=== PATIENT | male | born 1995 | race Two or more races ===

== ENCOUNTER 2021-01-04 19:37 | Emergency (ER) | payer OTHER ==
[~2021-01-04] VITALS: Ht 167.6 cm; Wt 72.6 kg
[2021-01-04 19:50] VITALS: BP 106/69
[2021-01-04] MEDS ORDERED: ALBUTEROL SULF 2.5 MG/0.5ML(0.5%) NEB SOLN NEB ONE (20:00)
[2021-01-04] MEDS ORDERED: IPRATROPIUM BROM 0.5 MG/2.5ML INH SOL NEB ONE (20:00)
[2021-01-04] MEDS ORDERED: DexAMETHasone SOD PHOS 10MG/1ML VIAL INJ IV ONE (21:00)
== END 2021-01-04 23:28 | disposition left against medical advice (07) ==
LOC: ER 19:44
DX: J02.9 Acute pharyngitis, unspecified (principal); R51.9 Headache, unspecified; Z53.21 Procedure and treatment not carried out due to patient leaving prior to being seen by health care provider
CPT/HCPCS: 94640; J7644

== ENCOUNTER 2021-07-18 17:43 | Emergency (ER) | payer OTHER ==
[~2021-07-18] VITALS: Ht 167.6 cm; Wt 81.6 kg
[2021-07-18 19:05] VITALS: BP 124/80
[2021-07-18] MEDS ORDERED: IBUP800T27 PO (19:53)
[2021-07-18] MEDS ORDERED: METH500T22 PO (19:53)
[2021-07-18] MEDS ORDERED: ALPRAZolam 0.25 MG TAB PO ONE (20:00)
[2021-07-18] MEDS ORDERED: METHOCARBAMOL 500 MG TAB PO ONE (20:00)
[2021-07-18] MEDS ORDERED: KETOROLAC TROMETH 30 MG/ML 1ML VIAL IM ONE (20:00)
== END 2021-07-18 20:30 | disposition home or self-care (01) ==
LOC: ER 17:43
DX: M54.16 Radiculopathy, lumbar region (principal); M79.18 Myalgia, other site; M54.31 Sciatica, right side
CPT/HCPCS: 96372; 99283; J1885

== ENCOUNTER 2024-06-13 06:17 | Emergency (ER) | payer BC, OTHER ==
[~2024-06-13] VITALS: Ht 167.6 cm; Wt 81.8 kg
[~2024-06-13 06:17] MED LIST: IBUP-1456 PO; METH-1181 PO
--- NOTE | 2024-06-13 09:28 | ED.PDOC ---
Musculoskeletal HPI Comments 28 year old male presents to the ED with chief complaint of ankle pain. Patient reports that he has been experiencing right ankle pain since rolling his ankle at an outing with his family a few days ago. Patient relays that he took some mild pain medication with some relief noted. Patient denies any fall, trauma, numbness, or weakness. Chief Complaint: Lower Extremity Time Seen by MD: 09:26 Primary Care Provider: UNKNOWN Reviewed Notes: Nurses Notes, Medications, Allergies Allergies: Coded Allergies: NO KNOWN ALLERGIES (Unverified , 01/04/21) Home Meds Active Scripts Methocarbamol (Methocarbamol) 500 Mg Tab, 500 MG PO QHSP PRN for 10 Days, #10 TAB 0 Refills Prov:PATRICE NOYOLA 07/18/21 Ibuprofen (Ibuprofen) 800 Mg Tab, 1 TAB PO TID, #30 TAB 0 Refills Prov:PATRICE NOYOLA 07/18/21 Information Source: Patient Mode of Arrival: Ambulatory Location: Right Extremity Location: Ankle Timing: Days Prehospital treatment: None Severity: Moderate Able to Move Extremity: Yes Bear Weight: Limited Pain: Moderate Mechanism: Twisting Circumstances: Unknown Onset of Symptoms: Spontaneous Symptoms: Pain DVT Risk Factors: NONE Last Tetanus: Unknown Past Medical History PAST MEDICAL HISTORY: Denies Surgical History (Other): Left knee surgery Family History Family History: Reviewed,noncontributory to illness, No family hx of Cancer, No family hx of DM, No family hx of Heart marlon, No family hx of HTN, No family hx ofKidney marlon, No family hx of Liver marlon, No family hx of Lung marlon, No family hx of Stroke Social History Smoker: Non-Smoker Alcohol: Denies ETOH Use Drugs: Denies Drug Use Lives In: Home Constitutional: denies: chills, diaphoresis, fatigue, fever, malaise, sweats, weakness, others EENTM: denies: blurred vision, double vision, ear bleeding, ear discharge, ear drainage, ear pain, ear ringing, eye pain, eye redness, hearing loss, mouth pain, mouth swelling, nasal discharge, nose bleeding, nose congestion, nose pain, photophobia, tearing, throat pain, throat swelling, voice changes, others Respiratory: denies: cough, hemoptysis, orthopnea, SOB at rest, shortness of breath, SOB with excertion, stridor, wheezing, others Cardiovascular: denies: chest pain, dizzy spells, diaphoresis, Dyspnea on exertion, edema, irregular heart beat, left arm pain, lightheadedness, palpitations, PND, syncope, others Gastrointestinal: denies: abdomen distended, abdominal pain, blood streaked bowels, constipated, diarrhea, dysphagia, difficulty swallowing, hematemesis, melena, nausea, poor appetite, poor fluid intake, rectal bleeding, rectal pain, vomiting, others Genitourinary: denies: burning, dysuria, flank pain, frequency, hematuria, incontinence, penile discharge, penile sore, pain, testicle pain, testicle swelling, urgency, others Neurological: denies: dizziness, fainting, headache, left sided numbness, left sided weakness, numbness, paresthesia, pre-existing deficit, right sided numbness, right sided weakness, seizure, speech problems, tingling, tremors, weakness, others Musculoskeletal: reports: others (Rt ankle pain); denies: back pain, gout, joint pain, joint swelling, muscle pain, muscle stiffness, neck pain Integumetry: denies: bruises, change in color, change in hair/nails, dryness, laceration, lesions, lumps, rash, wounds, others Allergic/Immunocompromised: denies: Difficulty Healing, Frequent Infections, Hives, Itching, others Hematologic/Lymphatic: denies: anemia, blood clots, easy bleeding, easy bruising, swollen glands, others Endocrine: denies: excessive hunger, excessive sweating, excessive thirst, excessive urination, flushing, intolerance to cold, intolerance to heat, unexplained weight gain, unexplained weight loss, others Psychiatric: denies: anxiety, bipolar disorder, depression, hopeless, panic disorder, schizophrenia, sleepless, suicidal, others All Other Systems: Reviewed and Negative Physical Exam General Appearance: No Apparent Distress, Normal HEENT: Normal ENT Inspection, PERRL/EOMI Neck: Full Range of Motion, Non-Tender, Normal, Normal Inspection Respiratory: Chest Non-Tender, Lungs Clear, No Accessory Muscle Use, No Respiratory Distress, Normal Breath Sounds Cardiovascular: No Edema, No JVD, No Murmur, No Gallop, Normal Peripheral Pulses, Regular Rate/Rhythm Breast Exam: Deferred Gastrointestinal: No Organomegaly, Non Tender, No Pulsatile Mass, Normal Bowel Sounds, Soft Genitalia: Deferred Pelvic: Deferred Rectal: Deferred Extremities: No calf tenderness, Normal capillary refill, Normal inspection, Normal range of motion, Non-tender, No pedal edema Musculoskeletal : Location: Right Extremity Location: Ankle Apperance: Tenderness (Rt ankle tenderness) Neurologic: Alert, office automation clerk II-XII nml as Tested, No Motor Deficits, Normal Affect, Normal Mood, No Sensory Deficits Cerebellar Function: Normal Reflexes: Normal Skin: Dry, Normal Color, Warm Lymphatic: No Adenopathy Was a procedure done? Was a procedure done?: No Differential Diagnosis EXT Differential Diagnosis: Fracture, Sprain, Strain X-Ray, Labs, Meds, VS Vital Signs Date Time Temp Pulse Resp B/P (MAP) Pulse Ox O2 Delivery O2 Flow Rate FiO2 06/13/24 10:15 74 16 97 Room Air 06/13/24 10:15 98.1 74 16 152/80 (104) 97 98.1 06/13/24 06:30 98.1 74 16 152/80 (104) 97 Time of 1ST Reevaluation: 10:26 Reevaluation 1ST: Unchanged Patient Education/Counseling: Diagnosis, Treatment Family Education/Counseling: No Family Present Additional Information I reviewed the following notes from patient's past medical encounters: 07/18/21 For Lumbar Radiculopathy The following tests were ordered, and results were reviewed by me: Rt Ankle XR I reviewed and agreed with the following test results read by other providers: R t Ankle XR Additional Information was gathered from interviewing the following independent historians: None I discussed treatment and results with medical personnel. Departure 1 Departure Time of Disposition: 11:16 (Patient with a ankle sprain.) Impression: Primary Impression: Right ankle sprain Qualified Codes: S93.411A - Sprain of calcaneofibular ligament of right ankle, initial encounter Disposition: HOME / SELF CARE / HOMELESS Condition: Stable Additional Instructions: You sprained your ankle. Fortunately it is not broken on X-ray today. A sprain can hurt as much as a brake but heals much faster. You can ice your ankle as needed for pain. You can lluvia wrap your ankle as needed for pain. You can use crutches as needed. For pain you can take: 8am: Ibuprofen 400mg with food Noon: Tylenol 1000mg 4pm: Ibprofen 400mg with food 8pm: Tylenol 1000mg You were referred to our orthopedic surgeon to ensure you are healing well. Please call for an appointment within one week. If your symptoms worsen or you have any other concerns then please return to the ER. Discharged With: Self Critical Care Note Critical Care Time?: No Stability Stability form required: No Heart Score Heart Score: Heart Score Response (Comments) Value History N/A 0 EKG N/A 0 Age N/A 0 Risk Factors N/A 0 Troponin N/A 0 Total 0 I personally scribed for MAYANK HU MD ([email or web address]) on 06/13/24 at 09:28. Electronically submitted by Robert Cristina ([email or web address]). MAYANK HU MD Jun 13, 2024 09:28
[2024-06-13 10:15] VITALS: BP 152/80; PULSE 74; RESP 16; TEMP 98.1; O2SAT 97
--- NOTE | 2024-06-13 10:47 | DVH ---
EXAM: XY R ANKLE 3 VIEW CLINICAL INDICATION: right ankle pain TECHNIQUE: XY R ANKLE 3 VIEW Comparison: None FINDINGS/IMPRESSION: There is no evidence of acute fracture or dislocation. The visualized joint space is well maintained. The alignment is anatomical. There is no radiopaque foreign body.
[2024-06-13] MEDS: KETOROLAC TROMETH 30 MG/ML 1ML VIAL IM ONE (11:41)
[2024-06-13] MEDS: ACETAMINOPHEN 325 MG TAB PO ONE (11:41)
== END 2024-06-13 12:39 | disposition home or self-care (01) ==
LOC: ER 06:17
DX: S93.411A Sprain of calcaneofibular ligament of right ankle, initial encounter (principal); X58.XXXA Exposure to other specified factors, initial encounter; Y93.89 Activity, other specified; Y92.89 Other specified places as the place of occurrence of the external cause; Y99.8 Other external cause status
CPT/HCPCS: 73610; 96372; 99283; J1885

== ENCOUNTER 2024-08-23 15:36 | Emergency (ER) | payer BC ==
[~2024-08-23] VITALS: Ht 167.6 cm; Wt 80.7 kg
--- NOTE | 2024-08-23 17:50 | ED.PDOC ---
Musculoskeletal HPI Comments 28 y/o M, with no prior medical history, presents to the ED for CC of lower extremity. Patient states, that he has been experiencing right ankle pain following trying to do a back flip off a swing set yesterday (08/22/24). Patient complains, of current right ankle swelling and pain with inability to bear weight fully. No other symptoms or modifying factors present at this time. Chief Complaint: Lower Extremity Time Seen by MD: 17:40 Primary Care Provider: NONE Reviewed Notes: Nurses Notes, Medications, Allergies Allergies: Coded Allergies: NO KNOWN ALLERGIES (Unverified , 01/04/21) Home Meds Active Scripts Methocarbamol (Methocarbamol) 500 Mg Tab, 500 MG PO QHSP PRN for 10 Days, #10 TAB 0 Refills Prov:PATRICE NOYOLA 07/18/21 Ibuprofen (Ibuprofen) 800 Mg Tab, 1 TAB PO TID, #30 TAB 0 Refills Prov:PATRICE NOYOLA 07/18/21 Information Source: Patient Mode of Arrival: Ambulatory Location: Right Extremity Location: Ankle Timing: Days Prehospital treatment: None Severity: Mild Able to Move Extremity: Yes Bear Weight: Limited Pain: Moderate Mechanism: Twisting Circumstances: Accident Onset of Symptoms: After Trauma Symptoms: Swelling, Pain DVT Risk Factors: NONE Last Tetanus: Unknown Associated signs and symptoms: Ankle pain Past Medical History PAST MEDICAL HISTORY: Denies Family History Family History: Reviewed,noncontributory to illness, No family hx of Cancer, No family hx of DM, No family hx of Heart marlon, No family hx of HTN, No family hx ofKidney marlon, No family hx of Liver marlon, No family hx of Lung marlon, No family hx of Stroke Social History Smoker: Other (VAPES) Alcohol: Occasionally Drugs: Denies Drug Use Lives In: Home Constitutional: denies: chills, diaphoresis, fatigue, fever, malaise, sweats, weakness, others EENTM: denies: blurred vision, double vision, ear bleeding, ear discharge, ear drainage, ear pain, ear ringing, eye pain, eye redness, hearing loss, mouth pain, mouth swelling, nasal discharge, nose bleeding, nose congestion, nose pain, photophobia, tearing, throat pain, throat swelling, voice changes, others Respiratory: denies: cough, hemoptysis, orthopnea, SOB at rest, shortness of breath, SOB with excertion, stridor, wheezing, others Cardiovascular: denies: chest pain, dizzy spells, diaphoresis, Dyspnea on exertion, edema, irregular heart beat, left arm pain, lightheadedness, palpitations, PND, syncope, others Gastrointestinal: denies: abdomen distended, abdominal pain, blood streaked bowels, constipated, diarrhea, dysphagia, difficulty swallowing, hematemesis, melena, nausea, poor appetite, poor fluid intake, rectal bleeding, rectal pain, vomiting, others Genitourinary: denies: burning, dysuria, flank pain, frequency, hematuria, incontinence, penile discharge, penile sore, pain, testicle pain, testicle swelling, urgency, others Neurological: denies: dizziness, fainting, headache, left sided numbness, left sided weakness, numbness, paresthesia, pre-existing deficit, right sided numbness, right sided weakness, seizure, speech problems, tingling, tremors, weakness, others Musculoskeletal: reports: others (RIGHT ANKLE PAIN); denies: back pain, gout, joint pain, joint swelling, muscle pain, muscle stiffness, neck pain Integumetry: denies: bruises, change in color, change in hair/nails, dryness, laceration, lesions, lumps, rash, wounds, others Allergic/Immunocompromised: denies: Difficulty Healing, Frequent Infections, Hives, Itching, others Hematologic/Lymphatic: denies: anemia, blood clots, easy bleeding, easy bruising, swollen glands, others Endocrine: denies: excessive hunger, excessive sweating, excessive thirst, excessive urination, flushing, intolerance to cold, intolerance to heat, unexplained weight gain, unexplained weight loss, others Psychiatric: denies: anxiety, bipolar disorder, depression, hopeless, panic dis order, schizophrenia, sleepless, suicidal, others All Other Systems: Reviewed and Negative Physical Exam General Appearance: No Apparent Distress HEENT: Normal ENT Inspection, Pharynx Normal, TMs Normal Neck: Full Range of Motion, Non-Tender, Normal, Normal Inspection Respiratory: Chest Non-Tender, Lungs Clear, No Accessory Muscle Use, No Respiratory Distress, Normal Breath Sounds Cardiovascular: No Edema, No JVD, No Murmur, No Gallop, Normal Peripheral Pulses, Regular Rate/Rhythm Breast Exam: Deferred Gastrointestinal: No Organomegaly, Non Tender, No Pulsatile Mass, Normal Bowel Sounds, Soft Genitalia: Deferred Pelvic: Deferred Rectal: Deferred Extremities: No calf tenderness, Normal capillary refill, No pedal edema Musculoskeletal : Location: Right Extremity Location: Ankle Apperance: Swelling, Limited ROM, Tenderness: Moderate Neurologic: Alert, carbide die maker II-XII nml as Tested, No Motor Deficits, Normal Affect, Normal Mood, No Sensory Deficits Cerebellar Function: Normal Reflexes: Normal Skin: Dry, Normal Color, Warm Lymphatic: No Adenopathy Was a procedure done? Was a procedure done?: No Differential Diagnosis EXT Differential Diagnosis: Sprain, Dislocation X-Ray, Labs, Meds, VS Vital Signs Date Time Temp Pulse Resp B/P (MAP) Pulse Ox O2 Delivery O2 Flow Rate FiO2 08/23/24 15:45 97.8 83 20 147/92 (110) 96 97.8 The ankle x-ray is negative for any fracture or dislocation The patient was placed in an Kamran wrap and given crutches and gait training The patient was being discharged at this time The patient was follow up with the primary care doctor The patient will return to the emergency department's condition worsens The patient was given tramadol here in the emergency department's Images Reviewed?: Images reviewed and evaluated by me Time of 1ST Reevaluation: 18:20 Reevaluation 1ST: Unchanged Time of 2ND Reevaluation: 19:50 Reevaluation 2ND: Improved Patient Education/Counseling: Diagnosis, Treatment, Prognosis, Need For Follow Up Family Education/Counseling: No Family Present Departure 1 Departure Time of Disposition: 19:50 Impression: Primary Impression: Right ankle sprain Qualified Codes: S93.401A - Sprain of unspecified ligament of right ankle, initial encounter Disposition: HOME / SELF CARE / HOMELESS Condition: Fair Discharged With: Self Critical Care Note Critical Care Time?: No Stability Stability form required: No Heart Score Heart Score: Heart Score Response (Comments) Value History N/A 0 EKG N/A 0 Age N/A 0 Risk Factors N/A 0 Troponin N/A 0 Total 0 I personally scribed for NO SHELBY MD ([email or web address]) on 08/23/24 at 17:50. Electronically submitted by Ann Cannon ([email or web address]). NO SHELBY MD Aug 23, 2024 17:50
--- NOTE | 2024-08-23 18:56 | DVH ---
EXAM: XY R ANKLE 3 VIEW HISTORY: trauma COMPARISON: XY R ANKLE 3 VIEW on DOS: 06/13/24 TECHNIQUE: Three views of the right ankle were performed. FINDINGS: No acute fracture or dislocation are identified about the right ankle. The mortise is intac t. IMPRESSION: 1. Unremarkable radiographs of the right ankle.
[2024-08-23] MEDS: traMADol HCL 50 MG TAB PO ONE (20:14)
[2024-08-23 20:15] VITALS: BP 111/76; PULSE 64; RESP 19; TEMP 98.3; O2SAT 96
== END 2024-08-23 20:29 | disposition home or self-care (01) ==
LOC: ER 15:36
DX: S93.401A Sprain of unspecified ligament of right ankle, initial encounter (principal); F17.290 Nicotine dependence, other tobacco product, uncomplicated; Z79.1 Long term (current) use of non-steroidal anti-inflammatories (NSAID); X58.XXXA Exposure to other specified factors, initial encounter; Y93.89 Activity, other specified; Y92.89 Other specified places as the place of occurrence of the external cause; Y99.8 Other external cause status
CPT/HCPCS: 73610

== ENCOUNTER 2024-12-25 10:19 | Emergency (ER) | payer BC ==
[~2024-12-25] VITALS: Ht 170.2 cm; Wt 78.9 kg
--- NOTE | 2024-12-25 10:50 | ED.PDOC ---
History of Present Illness HPI Comments 29-year-old male presents the ER with no prior medical history associated with a chief complaint of flu-like symptoms. Patient reports on having a productive cough, shortness a breath, congestion, fever, and runny nose since Thursday of 12/23/2024. Patient notes that he has pain during inspiration feel like I can not catch a full breath. Denies chills, N/V/D, CP. No other associated symptoms, modifiers, recent injuries or sick contacts present at this time. Chief Complaint: Flu like Time Seen by MD: 10:50 Primary Care Provider: NONE Reviewed Notes: Nurses Notes, Medications, Allergies Allergies: Coded Allergies: NO KNOWN ALLERGIES (Unverified , 01/04/21) Home Meds Active Scripts Prednisone (Prednisone) 20 Mg Tab, 20 MG PO DAILY@BREAKFAST for 4 Days, #5 MG Prov:JENNIFER NUR HOSPICE CLINICAL MARKETER 12/25/24 Albuterol Sulfate (Albuterol Sulfate Hfa) 108 Mcg/Act Aer, 108 MCG IN Q4HR for 7 Days, #1 AER Prov:JENNIFER NUR HOSPICE CLINICAL MARKETER 12/25/24 Amoxicillin Trihydrate (Amoxicillin) 500 Mg Cap, 500 MG PO TID for 7 Days, #21 CAP Prov:JENNIFER NUR HOSPICE CLINICAL MARKETER 25 Methocarbamol (Methocarbamol) 500 Mg Tab, 500 MG PO QHSP PRN for 10 Days, #10 TAB 0 Refills Prov:PATRICE NOYOLA 07/18/21 Ibuprofen (Ibuprofen) 800 Mg Tab, 1 TAB PO TID, #30 TAB 0 Refills Prov:PATRICE NOYOLA 07/18/21 Information Source: Patient Mode of Arrival: Ambulatory Severity: Moderate Timing: Days Duration: Since onset, Days Prehospital treatment: None Past Medical History PAST MEDICAL HISTORY: Denies Surgical History: Denies all surgeries Family History Family History: Reviewed,noncontributory to illness, Unknown Social History Smoker: Unknown Alcohol: Unknown Drugs: Unknown Lives In: Home Constitutional: reports: fever; denies: chills, diaphoresis, fatigue, malaise, sweats, weakness, others EENTM: denies: blurred vision, double vision, ear bleeding, ear discharge, ear drainage, ear pain, ear ringing, eye pain, eye redness, hearing loss, mouth pain, mouth swelling, nasal discharge, nose bleeding, nose congestion, nose p ain, photophobia, tearing, throat pain, throat swelling, voice changes, others Respiratory: reports: cough, shortness of breath, others (Congestion); denies: hemoptysis, orthopnea, SOB at rest, SOB with excertion, stridor, wheezing Cardiovascular: denies: chest pain, dizzy spells, diaphoresis, Dyspnea on exertion, edema, irregular heart beat, left arm pain, lightheadedness, palpitations, PND, syncope, others Gastrointestinal: denies: abdomen distended, abdominal pain, blood streaked bowels, constipated, diarrhea, dysphagia, difficulty swallowing, hematemesis, melena, nausea, poor appetite, poor fluid intake, rectal bleeding, rectal pain, vomiting, others Genitourinary: denies: burning, dysuria, flank pain, frequency, hematuria, incontinence, penile discharge, penile sore, pain, testicle pain, testicle swelling, urgency, others Neurological: denies: dizziness, fainting, headache, left sided numbness, left sided weakness, numbness, paresthesia, pre-existing deficit, right sided numbness, right sided weakness, seizure, speech problems, tingling, tremors, weakness, others Musculoskeletal: denies: back pain, gout, joint pain, joint swelling, muscle pain, muscle stiffness, neck pain, others Integumetry: denies: bruises, change in color, change in hair/nails, dryness, laceration, lesions, lumps, rash, wounds, others Allergic/Immunocompromised: denies: Difficulty Healing, Frequent Infections, Hives, Itching, others Hematologic/Lymphatic: denies: anemia, blood clots, easy bleeding, easy bruising, swollen glands, others Endocrine: denies: excessive hunger, excessive sweating, excessive thirst, excessive urination, flushing, intolerance to cold, intolerance to heat, unexplained weight gain, unexplained weight loss, others Psychiatric: denies: anxiety, bipolar disorder, depression, hopeless, panic disorder, schizophrenia, sleepless, suicidal, others All Other Systems: Reviewed and Negative Physical Exam General Appearance: No Apparent Distress, Normal HEENT: Normal ENT Inspection, Pharynx Normal, TMs Normal Neck: Full Range of Motion, Non-Tender, Normal, Normal Inspection Respiratory: Chest Non-Tender, Lungs Clear, No Accessory Muscle Use, No Respiratory Distress, Normal Breath Sounds Cardiovascular: No Edema, No JVD, No Murmur, No Gallop, Normal Peripheral Pulses, Regular Rate/Rhythm Breast Exam: Deferred Gastrointestinal: No Organomegaly, Non Tender, No Pulsatile Mass, Normal Bowel Sounds, Soft Genitalia: Deferred Pelvic: Deferred Rectal: Deferred Extremities: No calf tenderness, Normal capillary refill, Normal inspection, Normal range of motion, Non-tender, No pedal edema Musculoskeletal : Apperance: Normal Neurologic: Alert, implementation director II-XII nml as Tested, No Motor Deficits, Normal Affect, Normal Mood, No Sensory Deficits Cerebellar Function: Normal Reflexes: Normal Skin: Dry, Normal Color, Warm Lymphatic: No Adenopathy Was a procedure done? Was a procedure done?: No Differential Dx Considerations may include: Ammonia versus asthma exacerbation X-Ray, Labs, Meds, VS Vital Signs Date Time Temp Pulse Resp B/P (MAP) Pulse Ox O2 Delivery O2 Flow Rate FiO2 12/25/24 12:08 16 96 Room Air* 0 21 12/25/24 10:20 97.9 99 20 112/69 95 97.9 Current Medications Medications (Trade) Dose Ordered Sig/Sim Route Start Time Stop Time Status Last Admin Albuterol (Ventolin Medneb) 2.5 mg ONCE ONCE NEB 12/25/24 11:45 12/25/24 11:46 DC 12/25/24 12:07 Dexamethasone Sodium Phosphate (Decadron Injection) 10 mg ONCE ONCE IM 12/25/24 11:45 12/25/24 11:46 DC 12/25/24 12:07 [place] [id number] Ph: [phone] DIAGNOSTIC IMAGING Diagnostic Imaging Report : [id number] Signed PATIENT: HELEN ERIC ACCT: [id number] UNIT: [id number] : 1995 LOC: ER ROOM / BED: / AGE / SEX: 29 / M ADM STATUS: REG ER SERVICE [id number] ORDERING PHYSICIAN: JENNIFER NUR PROCEDURE(s): CXR1 - CHEST XRAY 1 VIEW REASON: SOB ORDER NUMBER(s): [id number], ACCESSION NUMBER(s): [id number] CLINICAL INFORMATION: Shortness of breath. TECHNIQUE: Single AP portable chest radiograph was obtained. COMPARISON: None FINDINGS: Lungs: Clear. Cardiac: Heart size is within normal limits. Pulmonary vasculature: Unremarkable. Mediastinum/beck: Unremarkable. Bones: No acute osseous abnormality identified. Postsurgical changes of prior open reduction internal fixation of the left clavicle. Other: No other significant findings. IMPRESSION: No evidence of acute disease in the chest. X-Ray, Labs, Meds, VS Comment Patient seen and examined by me. Patient with wheezing an upper respiratory infection. He was given a breathing treatment here which helped him dramatically he was also given a shot of Decadron which also helped. Chest x- ray was done which did not show any pneumonia. Patient will be sent home on antibiotics prednisone and an albuterol inhaler. Instructed to drink lots of liquids and follow up outpatient with his regular doctor. Time of 1ST Reevaluation: 12:33 Reevaluation 1ST: Unchanged Time of 2ND Reevaluation: 12:34 Reevaluation 2ND: Improved Patient Education/Counseling: Diagnosis, Treatment, Prognosis Family Education/Counseling: No Family Present SEPSIS Sepsis Screen Date sepsis recognized/suspect: Dec 25, 2024 Time Sepsis recognized/suspect: 1020 Recent Procedure: No On Antibiotic Therapy: No Respiratory Rate >20: No Heart Rate >90: Yes Temp<36 C (96.8 F) or >38.3 C: No SBP <90 or MAP <65 mmHG: No New Acute Mental Status Change: No Is the patient on CPAP, BIPAP,: No Physician Orders Chest Xray 1 View (12/25/24 11:46) Vital Signs Date Time Temp Pulse Resp B/P (MAP) Pulse Ox O2 Delivery O2 Flow Rate FiO2 12/25/24 12:08 16 96 Room Air* 0 21 12/25/24 10:20 97.9 99 20 112/69 95 97.9 Medications Medications Dose Ordered Sig/Sim Route Start Time Stop Time Status Last Admin Dose Admin Albuterol 2.5 mg ONCE ONCE NEB 12/25/24 11:45 12/25/24 11:46 DC 12/25/24 12:07 Dexamethasone Sodium Phosphate 10 mg ONCE ONCE IM 12/25/24 11:45 12/25/24 11:46 DC 12/25/24 12:07 Departure 1 Departure Time of Disposition: 12:34 Impression: Primary Impression: Bronchitis Disposition: 01 HOME / SELF CARE / HOMELESS Condition: Good Additional Instructions: Finish antibiotics as directed Use the inhaler as needed for shortness of breath Start the prednisone tomorrow Drink lots of liquids e-Prescriptions Prednisone (Prednisone) 20 Mg Tab 20 MG PO DAILY@BREAKFAST for 4 Days, #5 MG Prov: JENNIFER NUR HOSPICE CLINICAL MARKETER 12/25/24 Albuterol Sulfate (Albuterol Sulfate Hfa) 108 Mcg/Act Aer 108 MCG IN Q4HR for 7 Days, #1 AER Prov: JENNIFER NUR HOSPICE CLINICAL MARKETER 12/25/24 Amoxicillin Trihydrate (Amoxicillin) 500 Mg Cap 500 MG PO TID for 7 Days, #21 CAP Prov: JENNIFER NUR HOSPICE CLINICAL MARKETER 12/25/24 Discharged With: Self Critical Care Note Critical Care Time?: No Stability Stability form required: No I personally scribed for ER ([email or web address]) on 12/25/24 at 10:50. Electronically submitted by Francisco Duron ([email or web address]). I personally scribed for ER ([email or web address]) on 12/25/24 at 12:37. Electronically sub mitted by Francisco Duron ([email or web address]). ER Dec 25, 2024 10:50 JENNIFER NUR HOSPICE CLINICAL MARKETER Dec 25, 2024 12:37
[2024-12-25] MEDS: ALBUTEROL SULF 2.5 MG/0.5ML(0.5%) NEB SOLN NEB ONE (12:07)
--- NOTE | 2024-12-25 12:22 | DVH ---
CLINICAL INFORMATION: Shortness of breath. TECHNIQUE: Single AP portable chest radiograph was obtained. COMPARISON: None FINDINGS: Lungs: Clear. Cardiac: Heart size is within normal limits. Pulmonary vasculature: Unremarkable. Mediastinum/beck: Unremarkable. Bones: No acute osseous abnormality identified. Postsurgical changes of prior open reduction internal fixation of the left clavicle. Other: No other significant findings. IMPRESSION: No evidence of acute disease in the chest.
[2024-12-25] MEDS ORDERED: AMOX500C2 PO (12:37)
[2024-12-25] MEDS ORDERED: ALBU108A5 IN (12:37)
[2024-12-25] MEDS ORDERED: PRED20TA2 PO (12:37)
[2024-12-25 12:46] VITALS: BP 132/78; PULSE 78; RESP 16; TEMP 98.7; O2SAT 97
== END 2024-12-25 12:49 | disposition home or self-care (01) ==
LOC: ER 10:19
DX: J40 Bronchitis, not specified as acute or chronic (principal); F17.200 Nicotine dependence, unspecified, uncomplicated
CPT/HCPCS: 71045; 94640; 96372; 99283; J1100